=== PATIENT | male | born 1970 ===

== ENCOUNTER 2025-02-01 13:58 | Emergency (ER) | payer OTHER, SELFPAY ==
--- NOTE | 2025-02-01 14:00 | ECG_ITS ---
Test Reason : chest pain Blood Pressure : */* mmHG Vent. Rate : 84 BPM Atrial Rate : 84 BPM P-R Int : 176 ms QRS Dur : 102 ms QT Int : 348 ms P-R-T Axes : 46 43 93 degrees QTcB Int : 411 ms Normal sinus rhythm Inferior infarct , possibly acute Lateral injury pattern ACUTE MS / STEMI Consider right ventricular involvement in acute inferior infarct Abnormal ECG No previous ECGs available Referred By: Generic ED Physician Electronically Signed By: ANTONIO RODRIGUEZ MD
[2025-02-01 14:14] VITALS: BP 168/100; PULSE 94; RESP 20; TEMP 36.8; O2SAT 98; BMI 33.7
[2025-02-01] MEDS: Heparin Sodium,Porcine 5,000 UNIT/ML VIAL 4000 UNIT IVPUSH (14:15)
[2025-02-01] MEDS: Aspirin 81 MG TAB.CHEW 324 MG PO (14:15)
[2025-02-01] MEDS: fentaNYL citrate/PF 100 MCG/2 ML VIAL 25 MCG IVPUSH (14:15)
[2025-02-01] MEDS: Ticagrelor 90 MG TABLET 180 MG PO (14:15)
[2025-02-01] MEDS: Atorvastatin Calcium 80 MG TABLET PO (14:15)
--- NOTE | 2025-02-01 14:17 | ED.CHESTPAIN ---
HPI - Chest Pain General Chief Complaint: Chest Pain Stated Complaint: Chest Pain Time Seen by Provider: 02/01/25 14:08 Source: patient Mode of arrival: ambulatory History of Present Illness HPI narrative: Patient was seen at arrival in the emergency department EKG reviewed from triage cathodic protection technician activated at arrival. The patient is 54 years old with no significant medical problems presented to the emergency department with a chief complaint of chest pain x2 hours pain is described as a pressure radiated to the left arm MD complaint: chest pain Onset (ago): hour(s) (2) Timing of current episode: constant Onset: during rest Pain location: substernal Pain radiation: left arm Severity: severe Quality: tightness Relieving factors: nothing Exacerbating factors: nothing Context: recent illness Risk Factors Coronary artery disease risk factors: none Related Data Allergies Allergy/AdvReac Type Severity Reaction Status Date / Time No Known Allergies Allergy Verified 02/01/25 14:15 Review of Systems Constitutional: Constitutional: Reports no additional constitutional complaints ENT: Reports system reviewed and no additional complaints, except as documented Cardiovascular: Cardiovascular: Reports no additional cardiovascular complaints Musculoskeletal: Musculoskeletal: Reports no additional musculoskeletal complaints [facility] Past Medical History [facility] Narrative: denies Social History Social History Smoked in Last 30 Days: No Use of substances other than those prescribed or required for medical reasons: No Advance Directives: No Advance Directives Information Provided: Yes Do you have a plan to hurt others: No Plan Physical Exam Vital Signs: Vital Signs: Last Vital Signs Temp 0 F L 02/01/25 14:33 Pulse 95 02/01/25 14:33 Resp 18 02/01/25 14:33 BP 167/99 H 02/01/25 14:33 Pulse Ox 97 02/01/25 14:33 O2 Del Method Room Air 02/01/25 14:33 BMI result Body Mass Index 33.7 Mild distress Const: General: cooperative Nutritional Appearance: average body habitus Orientation/consciousness: patient oriented x3 HEENT: Head: Yes normal to inspection Face and sinus: Yes normal facial exam Neck: Neck: Yes normal visual inspection Chest: Chest palpation & inspection: normal inspection of the chest Resp: Effort & Inspection: normal respiratory effort Cardio: Jugular venous distension: no JVD Rate: regular rate Rhythm: regular rhythm GI: Inspection: Yes normal to inspection Palpation (GI): Soft to palpation Skin: General skin exam: no rashes or lesions noted and elasticity normal Rashes: no rashes Wounds: no wounds Neuro: General: patient oriented x3 Cranial nerves: Yes CN's II-XII intact bilaterally Course Reevaluation(s) Reevaluation #1: 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 Time: 14:19 Reevaluation #2: spoke with outbound sales consultant at [facility] accepted to cathodic protection technician [facility] Time: 14:31 Medications Administered Discontinued Medications Generic Name Dose Route Start Last Admin Trade Name Deja PRN Reason Stop Dose Admin Aspirin 324 mg 02/01/25 14:09 02/01/25 14:15 Aspirin 81 Mg Tab.Chew PO 02/01/25 14:10 324 mg ONCE ONE Administration Atorvastatin Calcium 80 mg 02/01/25 14:10 02/01/25 14:15 Atorvastatin Calcium 80 Mg Tablet PO 02/01/25 14:11 80 mg ONCE ONE Administration Fentanyl 25 mcg 02/01/25 14:09 02/01/25 14:15 Fentanyl Citrate/Pf 100 Mcg/2 Ml Vial IVPUSH 02/01/25 14:10 25 mcg ONCE ONE Administration Protocol Heparin Sodium (Porcine) 4,000 unit 02/01/25 14:09 02/01/25 14:15 Heparin Sodium,Porcine 5,000 Unit/Ml Vial IVPUSH 02/01/25 14:10 4,000 unit ONCE ONE Administration Ticagrelor 180 mg 02/01/25 14:10 02/01/25 14:15 Ticagrelor 90 Mg Tablet PO 02/01/25 14:11 180 mg ONCE ONE Administration Medical Decision Making Medical Decision Making [facility] Narrative: Patient presented with chest pain EKG consistent with the IMI with called [facility] waiting for call back Differential Diagnosis Differential Diagnoses: The differential diagnosis associated with the presentation includes IMI Admission/Observation Consideration of admission/observation: Escalation of care including admission/observation considered Lab Data [facility] Lab Attestation statement: I reviewed the patient's lab results. 02/01/25 14:19 02/01/25 14:19 Labs: Lab Results 02/01/25 02/01/25 Range/Units 14:18 14:19 WBC 14.9 H (4.8-10.8) X10*3/uL RBC 4.93 (4.60-5.80) X10*6/uL Hgb 15.6 (14.0-18.0) g/dl Hct 46.3 (42.0-52.0) % MCV 93.9 (80.0-98.0) fL MCH 31.6 (27.0-33.0) pg MCHC 33.7 (31.0-36.0) g/dl RDW 12.9 (11.0-16.0) % Plt Count 342 (160-400) X10*3/uL MPV 9.4 (9.4-12.4) fL Immature Gran % (Auto) 0.6 H (0.0-0.4) % Neut % (Auto) 82.3 H (45-73) % Lymph % (Auto) 8.1 L (20-40) % [place] % (Auto) 7.7 (2-11) % Eos % (Auto) 0.8 (0-4) % Baso % (Auto) 0.5 (0-2) % Lymph # (Auto) 1.2 (1.2-4.9) X10*3/uL [place] # (Auto) 1.1 (0.1-1.2) X10*3/uL Eos # (Auto) 0.1 (0.0-0.4) X10*3/uL Baso # (Auto) 0.1 (0.0-0.2) X10*3/uL Abs Immat Gran (auto) 0.09 H (0.00-0.03) X10*3/uL Absolute Neuts (auto) 12.3 H (2.0-8.3) x10*3/uL Absolute Nucleated RBC 0.000 (0.0-0.012) X10*3/uL Nucleated RBC % (auto) 0.0 (0.0-0.2) /100WBC Hold Purple Top SEE NOTE PT 11.1 (10.9-12.4) SEC INR 1.0 (0.9-1.1) APTT 30.1 (26.0-36.8) SEC Sodium 136 (135-145) mmol/L Potassium 4.0 (3.3-5.1) mmol/L Chloride 103 (96-108) mmol/L Carbon Dioxide 24 (22-29) mmol/L Anion Gap 13 (12-20) BUN 23 H (9-16) mg/dL Creatinine 1.29 (0.5-1.4) mg/dL Estim Creat Clear Calc 76.6 Estimated GFR 58 Random Glucose 155 H (60-115) mg/dL Calcium 9.3 (8.4-10.2) mg/dL Total Bilirubin 0.4 (0.0-1.0) mg/dL AST 28 (5-37) U/L ALT 21 (0-40) U/L Alkaline Phosphatase 63 (39-117) U/L Troponin I High Sens 142.5 H* (<3.5-35.0) ng/L Total Protein 8.1 H (6.5-8.0) g/dL Albumin 4.5 (3.5-5.0) g/dL Independent Interpretation I performed an independent interpretation of an: EKG (Myocardial infarction) Critical Care Time Critical Care Time Critical Care Time: Yes Total Critical Care Time: 60 Attestation: IA arranging transfer to tertiary center taking care of the pt Discharge Plan Discharge Clinical Impression: Acute IA, inferior wall Patient Disposition: Xfer Other Transfer Details: [facility] - [employer] Interventions: Acute Care Transfer Worksheet (ED) Last Done: 02/01/25 14:33 Discharge Date/Time: 02/01/25 14:29 Print Language: [place]
[2025-02-01 14:19] VITALS: PULSE 95
[2025-02-01 14:27] VITALS: BP 167/99; PULSE 95; RESP 18; O2SAT 97
[2025-02-01 14:28] LABS: Basophils Absolute Auto 0.1 X10*3/uL (0.0-0.2); Basophils Percent Auto 0.5 % (0-2); Eosinophils Absolute Auto 0.1 X10*3/uL (0.0-0.4); Eosinophils Percent Auto 0.8 % (0-4); Hematocrit 46.3 % (42.0-52.0); Hemoglobin 15.6 g/dl (14.0-18.0); Imm Gran Abs Auto 0.09 X10*3/uL (0.00-0.03); Imm Gran Pct Auto 0.6 % (0.0-0.4); Lymphocytes Absolute Auto 1.2 X10*3/uL (1.2-4.9); Lymphocytes Percent Auto 8.1 % (20-40); MANUAL DIFF FLAG NO; Mean Corpuscular HGB Conc 33.7 g/dl (31.0-36.0); Mean Corpuscular Hemoglobin 31.6 pg (27.0-33.0); Mean Corpuscular Volume 93.9 fL (80.0-98.0); Mean Platelet Volume 9.4 fL (9.4-12.4); Monocytes Absolute Auto 1.1 X10*3/uL (0.1-1.2); Monocytes Percent Auto 7.7 % (2-11); Neutrophils Absolute Auto 12.3 x10*3/uL (2.0-8.3); Neutrophils Percent Auto 82.3 % (45-73); Platelet Count 342 X10*3/uL (160-400); Red Blood Count 4.93 X10*6/uL (4.60-5.80); Red Cell Distribution Width 12.9 % (11.0-16.0); White Blood Count 14.9 X10*3/uL (4.8-10.8)
--- NOTE | 2025-02-01 14:29 | PC.NURSE ---
Report given to [facility], [facility], updated pt. on plan of care.
[2025-02-01 14:33] VITALS: BP 167/99; PULSE 95; RESP 18; TEMP -17.7; TEMP 0; O2SAT 97
[2025-02-01 14:40] LABS: Prothrombin Time 11.1 SEC (10.9-12.4)
[2025-02-01 14:42] LABS: Partial Thromboplastin Time 30.1 SEC (26.0-36.8)
--- NOTE | 2025-02-01 14:42 | PC.NURSE ---
Report given to PK Seay at [facility] lab
[2025-02-01 14:59] LABS: Alanine Aminotransferase 21 U/L (0-40); Albumin Level 4.5 g/dL (3.5-5.0); Anion Gap 13 (12-20); Aspartate Amino Transferase 28 U/L (5-37); Bilirubin Total 0.4 mg/dL (0.0-1.0); Blood Urea Nitrogen 23 mg/dL (9-16); Calcium 9.3 mg/dL (8.4-10.2); Carbon Dioxide 24 mmol/L (22-29); Chloride 103 mmol/L (96-108); Creatinine Clr Calc Pharmacy 76.6; Estimated Glomerular Filt Rate 58; Glucose Random 155 mg/dL (60-115); Sodium 136 mmol/L (135-145); Total Protein 8.1 g/dL (6.5-8.0)
[2025-02-01 15:22] LABS: Troponin-I High Sensitivity 142.5 ng/L (<3.5-35.0)
[2025-02-01 16:14] LABS: Alkaline Phosphatase 63 U/L (39-117)
== END 2025-02-01 14:29 | disposition short-term general hospital (02) ==
PROVIDERS: Emergency Provider Emergency Medicine
DX: I21.19 ST elevation (STEMI) myocardial infarction involving other coronary artery of inferior wall (principal); R07.89 Other chest pain; Z79.899 Other long term (current) drug therapy
CPT/HCPCS: 36415; 80053; 84484; 85025; 85610; 85730; 93005; 96374; 96375; 99285; J1644; J3010

== ENCOUNTER → 2025-02-01 14:00 | Outpatient (BNV) | payer OTHER, SELFPAY | PROVIDERS: Emergency Provider Emergency Medicine; Visit Provider Internal Medicine Cardiovascular Disease | DX: I21.9 Acute myocardial infarction, unspecified (principal) | CPT/HCPCS: 93010 ==